=== PATIENT | female | born 1990 | race Caucasian/White ===

== ENCOUNTER 2021-07-31 13:19 | Emergency (ER) | payer OTHER, SELFPAY ==
--- NOTE | ~2021-07-31 | XR_ITS ---
EXAMINATION: XR chest 1V portable INDICATION: Cough and shortness of breath TECHNIQUE: Portable AP chest at 1413 COMPARISON: None available FINDINGS: There are patchy opacities throughout all lung zones. No pleural effusion or pneumothorax i s identified. The cardiomediastinal silhouette is normal. The visualized osseous structures are unrem arkable. IMPRESSION: 1. Patchy bilateral airspace opacities in a pattern commonly seen with COVID 19 pneumonia. Reviewed, dictated and finalized at location A.
[2021-07-31 13:24] VITALS: BP 120/86; PULSE 117; RESP 18; TEMP 38; O2SAT 98
--- NOTE | 2021-07-31 14:11 | ED.GENADULT ---
HPI - General Adult General Chief complaint: Upper Respiratory Infection Stated complaint: coughing, aches Time Seen by Provider: 07/31/21 14:10 Source: patient Mode of arrival: ambulatory Limitations: no limitations History of Present Illness HPI narrative: Patient is here for treatment of body aches and upper respiratory symptoms. Her boyfriend is Covid positive and has been for at least a week she to has been symptomatic for approximately a week. She is not vaccinated nor is he. She has been treating her body aches at home with Tylenol and ibuprofen, she is unclear about how much or how often. She has been hydrating primarily with juices. 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 [employer] Exam Const: General: no acute distress, alert and ill appearing Orientation/consciousness: patient oriented x3 HENMT: Head: normal to inspection Ears: TM's normal bilaterally Eyes: Conjunctivae: conjunctivae normal Pupils: Equal, round and reactive pupils present Neck: Neck: no lymphadenopathy Resp: Effort & Inspection: normal respiratory effort Auscultation: clear to auscultation bilaterally Cardio: Rate: regular rate and tachycardic Skin: General skin exam: normal color Neuro: General: patient oriented x3 and no focal motor deficits Extrem: General: normal to inspection Psych: Mental Status: mental status grossly normal Course Course Emergency Course: X-ray findings are consistent with what would be seen in COVID-19. Results discussed with patient. Instructed to sign up for the portal in order to get her COVID-19 results, she was given instruction on how to do that. She is instructed to quarantine at home until she sees her results, if she is positive she will quarantine for at least 10 days or until asymptomatic. Vital Signs Vital signs: Vital Signs Temperature 38.0 C H 07/31/21 13:24 Pulse Rate 117 H 07/31/21 13:24 Respiratory Rate 18 07/31/21 13:24 Blood Pressure 120/86 07/31/21 13:24 Pulse Oximetry 98 07/31/21 13:24 Temperature 38.0 C H 07/31/21 13:24 Pulse Rate 117 H 07/31/21 13:24 Respiratory Rate 18 07/31/21 13:24 Blood Pressure 120/86 07/31/21 13:24 Pulse Oximetry 98 07/31/21 13:24 Medical Decision Making Vital Signs Vital Signs: Vital Signs Temperature 38.0 C H 07/31/21 13:24 Pulse Rate 117 H 07/31/21 13:24 Respiratory Rate 18 07/31/21 13:24 Blood Pressure 120/86 07/31/21 13:24 Pulse Oximetry 98 07/31/21 13:24 Temperature 38.0 C H 07/31/21 13:24 Pulse Rate 117 H 07/31/21 13:24 Respiratory Rate 18 07/31/21 13:24 Blood Pressure 120/86 07/31/21 13:24 Pulse Oximetry 98 07/31/21 13:24 Discharge Plan Discharge Clinical Impression: Person under investigation for COVID-19 Pneumonia Qualifiers: Pneumonia type: due to unspecified organism Laterality: bilateral Lung location: unspecified part of lung Qualified Code(s): J18.9 - Pneumonia, unspecified organism Patient Disposition: Home, Self-Care Condition: Stable Instructions: Antibiotic Form, COVID-19 (Coronavirus Disease 2019) (ED) Additional Instructions: Continue to treat yourself symptomatically with ibuprofen or Tylenol for body aches and fever. Drink plenty of water, not juice or caffeinated beverages. Finish your medications as prescribed. You may use your inhaler 2 puffs every 4-6 hours as needed for cough
[2021-07-31] MEDS: KETOROLAC 30 MG/ML VIAL (*BKC) IM (14:38)
[2021-07-31] MEDS: ALBUTEROL SULFATE (*SP) AEROSOL 1 PUFF 2 PUFF INHALATION (15:42)
[2021-08-01 15:30] LABS: SARS-CoV-2 RNA PCR Positive
== END 2021-07-31 16:10 | disposition home or self-care (01) ==
PROVIDERS: Physician Assistant; Emergency Provider Emergency Medicine
DX: U07.1 COVID-19 (principal); J12.82 Pneumonia due to coronavirus disease 2019
CPT/HCPCS: 71045; 96372; 99283; A9270; C9803; J1885; U0003; U0005